=== PATIENT | female | born 1995 | race Caucasian/White ===

== ENCOUNTER 2022-04-08 17:40 | Emergency (ER) | payer BC ==
[~2022-04-08] VITALS: Ht 160 cm; Wt 61.0 kg
[2022-04-08 23:42] LABS: BASOPHILS % 0.4 % (0.0-2.0); EOSINOPHILS % 1.9 % (0.0-5.0); HEMATOCRIT. 40.1 % (36.0-48.0); HEMOGLOBIN. 13.2 g/dL (12.0-16.0); LYMPHOCYTES % 35.4 % (20.0-50.0); MEAN CORPUSCULAR HEMOGLOBIN 28.2 pg (28.0-32.0); MEAN CORPUSCULAR VOLUME 85.5 fL (81.0-99.0); MONOCYTES % 6.7 % (2.0-8.0); NEUTROPHILS % 55.6 % (40.0-76.0); PLATELET 293 x1000/uL (130-400); RED BLOOD CELL COUNT 4.69 mill/uL (4.2-5.4)
[2022-04-08 23:50] LABS: CHLORIDE 107 mEq/L (98-107)
[2022-04-09] MEDS ORDERED: ONDANSETRON HCL 4MG/2ML INJ IV STA (01:58)
[2022-04-09] MEDS ORDERED: MAGNESIUM/ALUMINUM HYDROXIDE/SIMETHICONE 30ML UDC PO STA (01:58)
[2022-04-09] MEDS ORDERED: KETOROLAC 30MG/ML VIAL IV STA (01:58)
[2022-04-09 01:59] LABS: CLARITY URINE CLOUDY (CLEAR); COLOR URINE DARK YELLOW (YELLOW); KETONES URINE 1+ (NEGATIVE); LEUKOCYTE ESTERASE URINE 2+ (NEGATIVE); NITRITE URINE NEGATIVE (NEGATIVE); OCCULT BLOOD URINE 3+ (NEGATIVE); PH URINE 6.5 (4.5-8.0); PROTEIN URINE 1+ (NEGATIVE); SPECIFIC GRAVITY URINE 1.031 (1.005-1.030)
[2022-04-09] MEDS ORDERED: SODIUM CHLORIDE 0.9% 1,000 ML IV ONE (02:00)
[2022-04-09] MEDS ORDERED: ONDA4TAB5 PO (05:14)
[2022-04-09] MEDS ORDERED: FAMO20TA8 MT (05:14)
[2022-04-09] MEDS ORDERED: SULF1TAB48 PO (05:14)
[2022-04-09] MEDS ORDERED: TRAM50TA3 PO (05:14)
[2022-04-09] MEDS ORDERED: CEFTRIAXONE 1 G PREMIX 50 ML IV NR (05:15)
[2022-04-09 06:40] VITALS: BP 110/72
== END 2022-04-09 06:47 | disposition home or self-care (01) ==
LOC: ER 17:40
DX: K52.9 Noninfective gastroenteritis and colitis, unspecified (principal); N39.0 Urinary tract infection, site not specified
CPT/HCPCS: 36415; 76705; 80053; 81003; 83690; 85025; 87086; 96361; 96365; 96375; 99284; J0696; J1885; J2405; J7030

== ENCOUNTER 2023-03-12 18:38 | Emergency (ER) | payer BC ==
[~2023-03-12] VITALS: Ht 162.6 cm; Wt 60.0 kg
[~2023-03-12 18:38] MED LIST: FAMO20TA8 MT; ONDA4TAB5 PO; SULF1TAB48 PO; TRAM50TA3 PO
[2023-03-12 23:53] LABS: CLARITY URINE CLEAR (CLEAR); COLOR URINE YELLOW (YELLOW); KETONES URINE 1+ (NEGATIVE); LEUKOCYTE ESTERASE URINE 1+ (NEGATIVE); NITRITE URINE NEGATIVE (NEGATIVE); OCCULT BLOOD URINE 3+ (NEGATIVE); PROTEIN URINE 1+ (NEGATIVE); SPECIFIC GRAVITY URINE 1.009 (1.005-1.030); UROBILINOGEN URINE 0.2 E.U./dL (0.2-1.0)
[2023-03-13] MEDS ORDERED: PYR200 MT (02:56)
[2023-03-13] MEDS ORDERED: NITR-87 MT (02:56)
[2023-03-13 03:01] VITALS: BP 126/76
== END 2023-03-13 03:29 | disposition home or self-care (01) ==
LOC: ER 18:38
DX: N39.0 Urinary tract infection, site not specified (principal); Z79.899 Other long term (current) drug therapy
CPT/HCPCS: 81003; 81025; 99283